=== PATIENT | male | born 1930 | race Caucasian/White ===

== ENCOUNTER 2017-04-16 19:14 | Emergency (ER) | payer OTHER ==
[~2017-04-16] VITALS: Ht 182.9 cm; Wt 82.0 kg
[~2017-04-16 19:14] MED LIST: HYDR-2768; LIPI80TA16
[2017-04-16 19:28] VITALS: BP 229/91; PULSE 58; RESP 18; TEMP 98.1; O2SAT 96
[2017-04-16 19:42] VITALS: BP 209/87; PULSE 60; RESP 15; O2SAT 97
[2017-04-16] MEDS ORDERED: ENAL20TA PO (19:42)
[2017-04-16] MEDS ORDERED: CLOP75TA PO (19:42)
[2017-04-16] MEDS ORDERED: HYDR25TA5 PO (19:42)
[2017-04-16] MEDS ORDERED: LOSA50TA PO (19:42)
[2017-04-16] MEDS ORDERED: SIMV40TA PO (19:42)
[2017-04-16] MEDS ORDERED: VITA1000 PO (19:42)
--- NOTE | 2017-04-16 20:13 | PD ---
HPI Chief Complaint: Hypertension Time Seen by Provider: 19:34 Travel History International Travel<30 days: No Contact w/Intl Traveler<30days: No Traveled to known affect area: No History of Present Illness HPI This 86-year-old male is been having intermittent headache for a couple of days. We'll see a right temporal headache that he has. His vision has not been affected. He does not have any numbness or weakness. 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 He has a history of hypertension and is on enalapril 20 and losartan. He says when he takes his blood pressure at home and is usually elevated. PFSH Past Medical History Hx Anticoagulant Therapy: Yes Cardiovascular Problems: Yes High Cholesterol: Yes Cerebrovascular Accident: Yes (1987) Diminished Hearing: Yes GERD: Yes Hypertension: Yes Seizures: Yes Tetanus Vaccination: Unknown Influenza Vaccination: Yes Past Surgical History Thoracic Surgery: Yes Social History Alcohol Use: Yes (rarely) Tobacco Use: No Substance Use: No Allergies-Medications (Allergen,Severity, Reaction): Coded Allergies: No Known Allergies (Verified , 04/16/17) Reported Meds & Prescriptions Reported Meds & Active Scripts Active Reported Vitamin D-1000 (Cholecalciferol) 1,000 Unit Tab 1,000 Units PO DAILY Enalapril (Enalapril Maleate) 20 Mg Tab 20 Mg PO DAILY Clopidogrel (Clopidogrel Bisulfate) 75 Mg Tab 75 Mg PO DAILY Hydrochlorothiazide 25 Mg Tab 25 Mg PO DAILY Losartan (Losartan Potassium) 50 Mg Tab 50 Mg PO DAILY Simvastatin 40 Mg Tab 40 Mg PO HS Review of Systems General / Constitutional: No: Fever, Chills Eyes: No: Diploplia HENT: Positive: Headaches, No: Lightheadedness Cardiovascular: No: Chest Pain or Discomfort, Palpitations Respiratory: No: Cough, Shortness of Breath Gastrointestinal: No: Vomiting Genitourinary: No: Urgency, Frequency Musculoskeletal: No: Myalgias, Arthralgias Skin: No Rash Physical Exam Narrative GENERAL: Well-developed male SKIN: Focused skin assessment warm/dry. HEAD: Atraumatic. Normocephalic. EYES: Pupils equal and round. No scleral icterus. No injection or drainage. ENT: No nasal bleeding or discharge. Mucous membranes pink and moist. NECK: Trachea midline. No JVD. CARDIOVASCULAR: Regular rate and rhythm. No murmur appreciated. RESPIRATORY: No accessory muscle use. Clear to auscultation. Breath sounds equal bilaterally. GASTROINTESTINAL: Abdomen soft, non-tender, nondistended. Hepatic and splenic margins not palpable. MUSCULOSKELETAL: No obvious deformities. No clubbing. No cyanosis. No edema. NEUROLOGICAL: Awake and alert. No obvious cranial nerve deficits. Motor grossly within normal limits. Normal speech. PSYCHIATRIC: Appropriate mood and affect; insight and judgment normal. Data Data Last Documented VS Vital Signs Date Time Temp Pulse Resp B/P (MAP) Pulse Ox O2 Delivery O2 Flow Rate FiO2 04/16/17 21:16 64 18 177/86 (116) 97 Room Air 04/16/17 19:28 98.1 Orders Orders Clonidine (Catapres) (04/16/17 20:15) Electrocardiogram (04/16/17 20:06) Complete Blood Count With Diff (04/16/17 20:06) Basic Metabolic Panel (Bmp) (04/16/17 20:06) Urinalysis - C+S If Indicated (04/16/17 20:06) Westergren Sedimentation Rate (04/16/17 20:06) Ct Brain W/O Iv Contrast(Rout) (04/16/17 20:06) Enalapril (Vasotec) (04/16/17 20:15) Labs Laboratory Tests Test 04/16/17 20:20 White Blood Count 9.0 TH/MM3 Red Blood Count 4.60 MIL/MM3 Hemoglobin 14.2 GM/DL Hematocrit 42.4 % Mean Corpuscular Volume 92.1 FL Mean Corpuscular Hemoglobin 30.9 PG Mean Corpuscular Hemoglobin Concent 33.5 % Red Cell Distribution Width 12.5 % Platelet Count 201 TH/MM3 Mean Platelet Volume 7.7 FL Neutrophils (%) (Auto) 52.0 % Lymphocytes (%) (Auto) 35.8 % Monocytes (%) (Auto) 9.2 % Eosinophils (%) (Auto) 1.0 % Basophils (%) (Auto) 2.0 % Neutrophils # (Auto) 4.7 TH/MM3 Lymphocytes # (Auto) 3.2 TH/MM3 Monocytes # (Auto) 0.8 TH/MM3 Eosinophils # (Auto) 0.1 TH/MM3 Basophils # (Auto) 0.2 TH/MM3 CBC Comment DIFF FINAL Differential Comment Erythrocyte Sedimentation Rate 4 mm/hr Blood Urea Nitrogen 20 MG/DL Creatinine 1.00 MG/DL Random Glucose 105 MG/DL Calcium Level 9.2 MG/DL Sodium Level 142 MEQ/L Potassium Level 3.9 MEQ/L Chloride Level 106 MEQ/L Carbon Dioxide Level 29.9 MEQ/L Anion Gap 6 MEQ/L Estimat Glomerular Filtration Rate 71 ML/MIN [facility] Medical Decision Making Medical Screen Exam Complete: Yes Emergency Medical Condition: Yes Medical Record Reviewed: Yes Differential Diagnosis Differential includes temporal arteritis, intracerebral hemorrhage, hypertension Narrative Course Sedimentation rate is normal. CT scan of the head is been read as negative. He has been given clonidine and lisinopril with good effect. His blood pressure has been running high will recommend that he increase his enalapril to 20 mg twice daily Diagnosis Primary Impression: Hypertension Qualified Codes: I10 - Essential (primary) hypertension Additional Instructions: Increase enalapril to 20 mg twice daily Disposition: 01 DISCHARGE HOME Condition: Stable Jose Rubin MD Apr 16, 2017 20:13
[2017-04-16] MEDS ORDERED: cloNIDine HCL 0.1 MG TAB PO ONE (20:15)
[2017-04-16] MEDS ORDERED: ENALAPRIL MALEATE 10 MG TAB PO ONE (20:15)
[2017-04-16 20:28] LABS: AUTOMATED NEUTROPHIL # 4.7 TH/MM3 (1.8-7.7); BASOPHIL # 0.2 TH/MM3 (0-0.2); EOSINOPHIL # 0.1 TH/MM3 (0-0.4); HEMATOCRIT 42.4 % (39.0-51.0); HEMO FLAGS DIFF FINAL; LYMPH % 35.8 % (9.0-44.0); LYMPHOCYTE # 3.2 TH/MM3 (1.0-4.8); MEAN CELL VOLUME 92.1 FL (80.0-100.0); MEAN CORPUSCULAR HEMOGLOBIN 30.9 PG (27.0-34.0); MEAN CORPUSCULAR HGB CONC 33.5 % (32.0-36.0); MONO % 9.2 % (0.0-8.0); PLATELET COUNT 201 TH/MM3 (150-450); RED CELL DISTRIBUTION WIDTH 12.5 % (11.6-17.2)
[2017-04-16 20:39] LABS: POTASSIUM 3.9 MEQ/L (3.5-5.1)
[2017-04-16 20:42] LABS: BICARBONATE 29.9 MEQ/L (21.0-32.0)
--- NOTE | 2017-04-16 20:43 | RADRPT ---
EXAM DATE/TIME: 04/16/2017 20:32 [facility] COMPARISON: No previous studies available for comparison. INDICATIONS : Headache and elevated blood pressure. RADIATION DOSE: 59.96 CTDIvol (mGy) MEDICAL HISTORY : Seizures. Hypertension. Hypercholesterolemia.Anticoagulant therapy. SURGICAL HISTORY : None. ENCOUNTER: Initial ACUITY: 1 day PAIN SCALE: 0/10 LOCATION: cranial TECHNIQUE: Multiple contiguous axial images were obtained of the head. Using automated exposure control and adj ustment of the mA and/or kV according to patient size, radiation dose was kept as low as reasonably a chievable to obtain optimal diagnostic quality images. DICOM format image data is available electro nically for review and comparison. FINDINGS: CEREBRUM: The ventricles are normal for age. No evidence of midline shift, mass lesion, hemorrhage or acute in farction. No extra-axial fluid collections are seen. POSTERIOR FOSSA: The cerebellum and brainstem are intact. The 4th ventricle is midline. The cerebellopontine angle i s unremarkable. EXTRACRANIAL: The visualized portion of the orbits is intact. SKULL: The calvaria is intact. No evidence of skull fracture. CONCLUSION: Negative noncontrast CT Bossman Aguilar MD on April 16, 2017 at 20:41 Board Certified Radiologist. This report was verified electronically.
[2017-04-16 21:16] VITALS: BP 177/86; PULSE 64; RESP 18; O2SAT 97
[2017-04-16 21:29] VITALS: BP 177/86
--- NOTE | 2017-04-17 20:09 | EKG ---
Date Performed: 04/16/2017 Time Performed: 20:18:32 PTAGE: 86 years EKG: Sinus rhythm WITH SINUS ARRHYTHMIA WITH FIRST DEGREE AV BLOCK BORDERLINE LEFT AXIS DEVIATION INCOMPLETE RIGHT BUN DLE BRANCH BLOCK LEFT VENTRICULAR HYPERTROPHY AND ST-T CHANGE ABNORMAL ECG PREVIOUS TRACING : 02/15/2006 19.31 DOCTOR: Dawood Gaona Interpretating Date/Time 04/17/2017 20:05:19
== END 2017-04-16 21:37 | disposition home or self-care (01) ==
LOC: PHED 19:14
DX: I10 Essential (primary) hypertension (principal); H91.90 Unspecified hearing loss, unspecified ear; Z86.73 Personal history of transient ischemic attack (TIA), and cerebral infarction without residual deficits; Z79.01 Long term (current) use of anticoagulants
CPT/HCPCS: 70450; 80048; 85025; 85652; 93005; 99285

== ENCOUNTER 2017-07-11 18:43 | Emergency (ER) | payer OTHER ==
[~2017-07-11] VITALS: Ht 182.9 cm; Wt 82.1 kg
[~2017-07-11 18:43] MED LIST changes: +CLOP75TA PO; +ENAL20TA PO; -HYDR-2768; +HYDR25TA5 PO; -LIPI80TA16; +LOSA50TA PO; +SIMV40TA PO; +VITA1000 PO
[2017-07-11 18:55] VITALS: BP 143/65; PULSE 61; RESP 20; TEMP 98.2; O2SAT 96
[2017-07-11] MEDS ORDERED: oxyCODONE/ACETAMINOPHEN 5 MG/325 MG TAB PO ONE (19:30)
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
[2017-07-11 19:46] LABS: APTT (PATIENT) 24.4 SEC (24.3-30.1); PROTHROMBIN TIME - PATIENT 10.7 SEC (9.8-11.6)
--- NOTE | 2017-07-11 20:10 | RADRPT ---
EXAM DATE/TIME: 07/11/2017 19:47 [facility] COMPARISON: CT BRAIN W/O CONTRAST, April 16, 2017, 20:32. INDICATIONS : Trauma. Fall. RADIATION DOSE: 67.94 CTDIvol (mGy) MEDICAL HISTORY : Seizures. Cerebrovascular disease. Hypertension. SURGICAL HISTORY : None. ENCOUNTER: Initial ACUITY: 1 day PAIN SCALE: 6/10 LOCATION: Bilateral cranial TECHNIQUE: Multiple contiguous axial images were obtained of the head. Using automated exposure control and adj ustment of the mA and/or kV according to patient size, radiation dose was kept as low as reasonably a chievable to obtain optimal diagnostic quality images. DICOM format image data is available electro nically for review and comparison. FINDINGS: CEREBRUM: The ventricles are normal for age. No evidence of midline shift, mass lesion, hemorrhage or acute in farction. No extra-axial fluid collections are seen. POSTERIOR FOSSA: The cerebellum and brainstem are intact. The 4th ventricle is midline. The cerebellopontine angle i s unremarkable. EXTRACRANIAL: The visualized portion of the orbits is intact. Left sphenoid sinus disease. SKULL: The calvaria is intact. No evidence of skull fracture. CONCLUSION: 1. No acute intracranial abnormality. 2. Left sphenoid sinus disease. Jon Cody MD on July 11, 2017 at 20:08 Board Certified Radiologist. This report was verified electronically.
--- NOTE | 2017-07-11 20:11 | RADRPT ---
EXAM DATE/TIME: 07/11/2017 19:47 [facility] COMPARISON: No previous studies available for comparison. INDICATIONS : Trauma. Fall. RADIATION DOSE: 26.70 CTDIvol (mGy) MEDICAL HISTORY : Hypertension. Seizures. Cardiovascular disease SURGICAL HISTORY : None. ENCOUNTER: Initial ACUITY: 1 day PAIN SCALE: 6/10 LOCATION: Bilateral neck TECHNIQUE: Volumetric scanning of the cervical spine was performed. Multiplanar reconstructions in the sagittal, coronal and oblique axial planes were performed. Using automated exposure control and adjustment o f the mA and/or kV according to patient size, radiation dose was kept as low as reasonably achievable to obtain optimal diagnostic quality images. DICOM format image data is available electronically f or review and comparison. FINDINGS: VERTEBRAE: Normal vertebral body height. Prominent degenerative changes. Anterior endplate osteophytes at multip le levels. ALIGNMENT: No evidence of subluxation. C2-C3: The bony spinal canal is normal in size. No evidence of disc bulge or herniation. The neural forami na are bilaterally patent. C3-C4: The bony spinal canal is normal in size. No evidence of disc bulge or herniation. The neural forami na are bilaterally patent. C4-C5: Posterior disc osteophyte complex without canal stenosis. The neural foramina are bilaterally patent . C5-C6: Posterior disc osteophyte complex without canal stenosis. The neural foramina are bilaterally patent . C6-C7: Posterior disc osteophyte complex without canal stenosis. The neural foramina are bilaterally patent . C7-T1: The bony spinal canal is normal in size. No evidence of disc bulge or herniation. The neural forami na are bilaterally patent. CONCLUSION: 1. Advanced multilevel degenerative changes. 2. No fracture. Jon Cody MD on July 11, 2017 at 20:08 Board Certified Radiologist. This report was verified electronically.
--- NOTE | 2017-07-11 20:39 | RADRPT ---
EXAM DATE/TIME: 07/11/2017 20:16 [facility] COMPARISON: No previous studies available for comparison. INDICATIONS : Anterior right knee abrasions. Patient fell last night. MEDICAL HISTORY : Seizures. Cerebrovascular disease. Hypertension. SURGICAL HISTORY : None. ENCOUNTER: Initial ACUITY: 2 days PAIN SCORE: 4/10 LOCATION: Right anterior knee. FINDINGS: Mild osteoarthritis at the right knee. No fracture or dislocation. Extensive arterial vascular calcif ications present. Positive joint effusion. CONCLUSION: 1. Mild osteoarthritis right knee with small joint effusion. Camacho Olivera MD on July 11, 2017 at 20:36 Board Certified Radiologist. This report was verified electronically.
[2017-07-11 21:06] VITALS: BP 158/63; PULSE 59; RESP 16; TEMP 98.3; O2SAT 96
== END 2017-07-11 21:10 | disposition home or self-care (01) ==
LOC: PHED 18:43
DX: S06.0X0A Concussion without loss of consciousness, initial encounter (principal); S09.90XA Unspecified injury of head, initial encounter; S16.1XXA Strain of muscle, fascia and tendon at neck level, initial encounter; S80.211A Abrasion, right knee, initial encounter; W10.1XXA Fall (on)(from) sidewalk curb, initial encounter; Y92.511 Restaurant or cafe as the place of occurrence of the external cause; I10 Essential (primary) hypertension; E78.00 Pure hypercholesterolemia, unspecified; Z86.73 Personal history of transient ischemic attack (TIA), and cerebral infarction without residual deficits; I67.9 Cerebrovascular disease, unspecified; M17.11 Unilateral primary osteoarthritis, right knee; Z79.02 Long term (current) use of antithrombotics/antiplatelets; Z79.899 Other long term (current) drug therapy
CPT/HCPCS: 70450; 72125; 73564; 85610; 85730; 99285